=== PATIENT | male | born 1990 | race Hispanic/Latino ===

== ENCOUNTER 2022-04-28 21:15 | Emergency (ER) | payer SELFPAY ==
--- NOTE | 2022-04-28 21:41 | Emergency Department Report ---
ED CPR HPI - General Stated Complaint: CARDIAC ARREST Time Seen by Provider: 04/28/22 21:36 - History of Present Illness Initial Comments: Patient is a 32-year-old male history of drug abuse brought in by EMS for cardiac arrest. He was found down roughly an hour ago. EMS administered 2 mg of intranasal Narcan and initiated ACLS measures with initial rhythm of asystole. Patient received 4 rounds of epi with no change in rhythm over the span of an hour. ED Review of Systems ROS: Stated complaint: CARDIAC ARREST Other details as noted in HPI Comment: Unobtainable due to pts medical conditions ED Physical Exam - General General appearance: other (Unresponsive) - Head Head exam: Present: atraumatic, normocephalic - Eye Pupils: Present: other (Pupils fixed) - ENT ENT exam: Present: other (Advanced airway in place.) - Respiratory Respiratory exam: Present: other (No spontaneous respirations) - Cardiovascular Cardiovascular Exam: Present: other (No palpable pulse. No heart sounds on auscultation) - GI/Abdominal GI/Abdominal exam: Present: soft. Absent: distended - Neurological Exam Neurological exam: Present: other (GCS 3 T) - Skin Skin exam: Present: pallor. Absent: warm (Cool extremities) ED Medical Decision Making - Medical Decision Making Resuscitative efforts continued upon patient's arrival. No change in rhythm after several rounds of ACLS. Patient . Critical care attestation.: If time is entered above; I have spent that time in minutes in the direct care of this critically ill patient, excluding procedure time. ED Disposition Clinical Impression: Cardiac arrest Disposition: 20 Is pt being admited?: No
[2022-04-29] MEDS ORDERED: EPINEPHrine 1 MG/10 ML SYRINGE ONE (07:00)
== END 2022-04-29 09:48 ==
LOC: ED 21:15 → EDBD 21:15 → ED 04-29 09:48
DX: I46.9 Cardiac arrest, cause unspecified (principal)
CPT/HCPCS: 92950; 99285; J0171